=== PATIENT | female | born 1965 | race Caucasian/White ===

== ENCOUNTER → 2017-07-06 | Outpatient (CLI) | payer BC | LOC: LAB 18:02 | PROVIDERS: ATTEND Nurse Practitioner Acute Care | DX: N39.0 Urinary tract infection, site not specified (principal); R42 Dizziness and giddiness | CPT/HCPCS: 87086; 87088; 87186 ==

== ENCOUNTER 2018-10-21 09:47 | Emergency (ER) | payer BC ==
[2018-10-21 09:55] VITALS: BP 138/72
[2018-10-21] MEDS ORDERED: KETOROLAC TROMETHAMINE 60 MG/2 ML SDV IM ONE (10:22)
[2018-10-21] MEDS ORDERED: LIDOCAINE 5% (700 MG) TRANSDERMAL ADH..PATCH TP ONE (10:22)
--- NOTE | 2018-10-21 10:36 | ER Document Report ---
HPI - HPI Patient complains to provider of: Left neck pain Time Seen by Provider: 10/21/18 10:02 Pain Level: 5 Context: Patient is a 52-year-old female presents to the emergency department for left trapezius pain. Patient states on Monday she woke up with generalized left trapezius pain. States she feels as though she may have slept wrong. States she does sit at a computer all day and has continued with pain since. States she has been taking [id number] Tylenol with no relief. Patient's denying any fever, URI symptoms, rash. She is denying any cervical spine tenderness, pain with flexion and extension of the neck. States she just has pain when trying to rotate her head to the left or right. Patient's denying any history of kidney problems. Past medical history: Hypothyroid, hyperlipidemia, hypertension Medications: Synthroid, lisinopril Allergies: None - CONSTITUTIONAL Constitutional: DENIES: Fever, Chills - EENT EENT: DENIES: Sore Throat, Ear Pain, Eye problems - NEURO Neurology: DENIES: Headache, Weakness, Vision blurred, Dizzinesss / Vertigo - CARDIOVASCULAR Cardiovascular: DENIES: Chest pain - RESPIRATORY Respiratory: DENIES: Trouble Breathing, Coughing - GASTROINTESTINAL Gastrointestinal: DENIES: Abdominal Pain, Black / Bloody Stools - URINARY Urinary: DENIES: Dysuria, Urgency, Frequency - REPRODUCTIVE Reproductive: DENIES: : - MUSCULOSKELETAL Musculoskeletal: DENIES: Extremity pain Past Medical History - General Information source: Patient - Social History Smoking Status: Unknown if Ever Smoked Chew tobacco use (# tins/day): No Frequency of alcohol use: None Drug Abuse: None Family History: Reviewed & Not Pertinent Patient has suicidal ideation: No Patient has homicidal ideation: No - Past Medical History Cardiac Medical History: Reports: Hx Hypercholesterolemia, Hx Hypertension Renal/ Medical History: Denies: Hx Peritoneal Dialysis Past Surgical History: Reports: Hx Appendectomy, Hx Cholecystectomy, Hx Gynecologic Surgery - right oopherectomy, Hx Tonsillectomy - t and a Vertical Provider Document - CONSTITUTIONAL Agree With Documented VS: Yes Notes: GENERAL: Alert, interacts well. No acute distress. HEAD: Normocephalic, atraumatic. EYES: Pupils equal, round, and reactive to light. Extraocular movements intact. ENT: Oral mucosa moist, tongue midline. NECK: Full range of motion, slight pain with rotation to the left or right. Supple. Trachea midline. No nuchal rigidity noted LUNGS: Clear to auscultation bilaterally, no wheezes, rales, or rhonchi. No respiratory distress. HEART: Regular rate and rhythm. No murmur ABDOMEN: Soft, non-tender. Non-distended. Bowel sounds present in all 4 quadrants. EXTREMITIES: Moves all 4 extremities spontaneously. No edema, normal radial and dorsalis pedis pulses bilaterally. No cyanosis. 5 out of 5 strength all 4 extremities. BACK: no cervical, thoracic, lumbar midline tenderness. No saddle anesthesia, normal distal neurovascular exam. Pain upon palpation left trapezius muscle. NEUROLOGICAL: Alert and oriented x3. Normal speech. cranial nerves II through XII grossly intact PSYCH: Normal affect, normal mood. SKIN: Warm, dry, normal turgor. No rashes or lesions noted. - INFECTION CONTROL TRAVEL OUTSIDE OF THE [place] IN LAST 30 DAYS: No Course - Re-evaluation Re-evalutation: 10/21/18 10:33 Discussed with patient this does appear to be muscular in nature. Patient does have full range of motion just with pain. Patient has no nuchal rigidity noted. She is no signs of fever, URI symptoms, rash. Meningitis is very unlikely. Patient denies any numbness or tingling in extremity. Patient stable for discharge. 10/21/18 10:36 Patient is driving which is why Flexeril was withheld in the emergency room. - Vital Signs Vital signs: Temp Pulse Resp BP Pulse Ox 97.9 F 76 18 138/72 H 100 10/21/18 09:55 10/21/18 09:55 10/21/18 09:55 10/21/18 09:55 10/21/18 09:55 Discharge - Discharge Clinical Impression: Trapezius muscle strain Qualifiers: Encounter type: initial encounter Laterality: left Qualified Code(s): S46.812A - Strain of other muscles, fascia and tendons at shoulder and upper arm level, left arm, initial encounter Condition: Stable Disposition: HOME, SELF-CARE Instructions: Muscle Relaxers ([facility]), Muscle Strain ([facility]), Torticollis ([facility]) Additional Instructions: You have been seen and treated in the emergency department for a muscle strain. Please use [id number] Tylenol, Motrin, naproxen as instructed on the bottles. Please also use muscle relaxers as prescribed and buy [id number] Lidoderm patches. Please immediately return to the emergency room should you have any other concerns. Prescriptions: Cyclobenzaprine HCl [Flexeril 5 mg Tablet] 5 mg PO TID #15 tablet Forms: Return to Work
== END 2018-10-21 10:50 | disposition home or self-care (01) ==
LOC: ER 09:47
DX: S29.012A Strain of muscle and tendon of back wall of thorax, initial encounter (principal); X58.XXXA Exposure to other specified factors, initial encounter; I10 Essential (primary) hypertension; E03.9 Hypothyroidism, unspecified; Z79.899 Other long term (current) drug therapy
CPT/HCPCS: 99283; 96372; J1885